=== PATIENT | male | born 1945 | race Caucasian/White ===

== ENCOUNTER → 2018-12-23 | Outpatient (CLI) | payer MEDICARE ==
--- NOTE | 2018-12-24 07:07 | REP ---
RIGHT KNEE SERIES: Five views right knee performed. No fracture or dislocation is seen. There is mild chondrocalcinosis. Scattered soft tissue calcifications are seen posteriorly. There is severe narrowing of the lateral patellofemoral joint with erosive change at the articular surfaces and moderate subchondral sclerosis. Large calcific body is seen along the margin of the lateral patellar facet. There is moderate spurring of the superior and inferior poles of the patella. There appears to be a moderate joint effusion. IMPRESSION: Severe degenerative changes patellofemoral joint. I see no evidence of acute fracture or dislocation. Moderate joint effusion. Electronically Signed by Cory Mari MD 12/24/2018 09:19 A
== END ==
LOC: M WUC 13:42
PROVIDERS: ATTEND Physician Assistant
DX: S80.01XA Contusion of right knee, initial encounter (principal); M25.461 Effusion, right knee; Y92.9 Unspecified place or not applicable; Y99.9 Unspecified external cause status; Y93.9 Activity, unspecified; X58.XXXA Exposure to other specified factors, initial encounter

== ENCOUNTER → 2019-04-11 | Outpatient (CLI) | payer MEDICARE ==
[2019-04-11 12:02] LABS: BASO # 0.1 10^3/uL (0.0-0.2); BASO % 1.6 % (0.0-1.0); EOS # 0.3 10^3/uL (0.0-0.50); EOS % 8.1 % (0.0-3.0); HEMATOCRIT 40.9 % (42.0-52.0); HEMOGLOBIN 13.9 g/dl (13.5-17.5); LYMPH # 0.9 10^3/uL (1.5-4.5); LYMPH % 27.8 % (24.0-44.0); MEAN CORPUSCULAR HEMOGLOBIN 32.4 pg (27.0-33.0); MEAN CORPUSCULAR VOLUME 95.3 fl (80.0-96.0); MONO # 0.3 10^3/uL (0.0-0.8); MONO % 9.4 % (0.0-5.0); NEUTROPHILS # 1.7 10^3/uL (1.8-7.7); NEUTROPHILS % 52.8 % (36.0-66.0); RED BLOOD COUNT 4.29 10^6/uL (4.30-6.10); WHITE BLOOD COUNT 3.2 10^3/uL (4.0-10.0)
[2019-04-11 12:08] LABS: ALBUMIN 3.3 GM/DL (3.2-5.2); ALT/SGPT 78 U/L (12-78); BILIRUBIN,TOTAL 0.6 MG/DL (0.2-1.0); BLOOD UREA NITROGEN 13 MG/DL (7-18); CALCIUM LEVEL 8.6 MG/DL (8.8-10.2); CARBON DIOXIDE LEVEL 29 MEQ/L (21-32); CHLORIDE LEVEL 111 MEQ/L (98-107); GLOMERULAR FILTRATION RATE > 60.0 (>42); GLUCOSE, FASTING 119 MG/DL (70-100); POTASSIUM SERUM 4.2 MEQ/L (3.5-5.1); SODIUM LEVEL 145 MEQ/L (136-145); TOTAL PROTEIN 7.4 GM/DL (6.4-8.2)
[2019-04-11 12:42] LABS: PLATELET COUNT, AUTOMATED 71 10^3/uL (150-450)
[2019-04-13 00:06] LABS: Lyme Disease IgG/IgM Antibodie <0.91 ISR (0.00-0.90); Lyme Disease IgM Ab Quantitati <0.80 index (0.00-0.79)
== END ==
LOC: M WUC 09:45
PROVIDERS: ATTEND Physician Assistant
DX: L30.9 Dermatitis, unspecified (principal)

== ENCOUNTER → 2019-11-18 | Outpatient (REF) | payer MEDICARE ==
[2019-11-18 15:58] LABS: PLATELET COUNT, AUTOMATED 83 10^3/uL (150-450)
[2019-11-18 16:03] LABS: COLLAGEN EPINEPHRINE 136 SECONDS (74-162)
[2019-11-18 16:06] LABS: INR 1.21; PROTHROMBIN TIME 15.1 SECONDS (11.8-14.0)
[2019-11-18 16:07] LABS: PARTIAL THROMBOPLASTIN TIME 36.4 SECONDS (25.0-38.4)
== END ==
LOC: M LABDRAW1 15:32
PROVIDERS: ATTEND Physician Assistant
DX: Z01.812 Encounter for preprocedural laboratory examination (principal); M47.817 Spondylosis without myelopathy or radiculopathy, lumbosacral region; Z79.01 Long term (current) use of anticoagulants

== ENCOUNTER → 2020-07-01 | Outpatient (CLI) | payer MEDICARE | LOC: M LABSMTC 09:36 | PROVIDERS: ATTEND Physical Medicine & Rehabilitation | DX: Z01.812 Encounter for preprocedural laboratory examination (principal); Z20.828 Contact with and (suspected) exposure to other viral communicable diseases ==

== ENCOUNTER → 2020-07-21 | Outpatient (CLI) | payer MEDICARE ==
[2020-07-21 16:06] LABS: PLATELET COUNT, AUTOMATED 69 10^3/uL (150-450)
[2020-07-21 16:17] LABS: INR 1.22; PROTHROMBIN TIME 15.7 SECONDS (12.5-14.3)
[2020-07-21 16:18] LABS: PARTIAL THROMBOPLASTIN TIME 35.6 SECONDS (24.2-38.5)
[2020-07-21 16:19] LABS: COLLAGEN EPINEPHRINE 123 SECONDS (74-162)
== END ==
LOC: M WUC 13:31
PROVIDERS: ATTEND Physician Assistant
DX: M47.817 Spondylosis without myelopathy or radiculopathy, lumbosacral region (principal)

== ENCOUNTER → 2020-07-22 | Outpatient (CLI) | payer MEDICARE | LOC: M LABSMTC 13:22 | PROVIDERS: ATTEND Physical Medicine & Rehabilitation | DX: Z01.818 Encounter for other preprocedural examination (principal); Z20.828 Contact with and (suspected) exposure to other viral communicable diseases ==

== ENCOUNTER → 2020-08-14 | Outpatient (REF) | payer MEDICARE ==
[2020-08-14 13:34] LABS: INR 1.22; PROTHROMBIN TIME 15.7 SECONDS (12.5-14.3)
== END ==
LOC: M LAB REF 12:29
PROVIDERS: ATTEND Physician Assistant Medical
DX: D69.2 Other nonthrombocytopenic purpura (principal)

== ENCOUNTER → 2020-10-05 | Outpatient (CLI) | payer MEDICARE ==
[~2020-10-05] MED LIST: GABA-845 PO; HYDR12.55 PO; MOBI4TAB PO; PRED20TA PO
== END ==
LOC: M LABSMTC 09:48
PROVIDERS: ATTEND Anesthesiology
DX: Z01.812 Encounter for preprocedural laboratory examination (principal); Z20.828 Contact with and (suspected) exposure to other viral communicable diseases

== ENCOUNTER 2020-10-08 07:54 | Day surgery (SDC) | payer MEDICARE ==
[~2020-10-08] VITALS: Ht 182.9 cm; Wt 108.9 kg
[~2020-10-08 07:54] MED LIST changes: +NS 1,000 ML IV ONE
[2020-10-08] MEDS ORDERED: LIDOCAINE 2% 100MG/5ML SDV (FOR ANES.) As Ordered ONE (08:19)
[2020-10-08] MEDS ORDERED: fentaNYL 100 MCG/2 ML INJECTION (J3010) As Ordered ONE (08:20)
[2020-10-08] MEDS ORDERED: propofoL 200 MG/20 ML VIAL As Ordered ONE ×2 (08:28→08:29)
--- NOTE | 2020-10-08 09:39 | ROOR ---
Patient Name: Raul Lane Procedure Date: 10/08/2020 9:11 AM Date of : 1945 Age: 75 Room: [facility] Gender: Male Note Status: Finalized Procedure: Colonoscopy Indications: Screening for colorectal malignant neoplasm Providers: Riley Yoon Jr, MD Referring MD: PADILLA AVILA JR, MD Requesting Provider: Medicines: Propofol per Anesthesia Complications: No immediate complications. Procedure: Pre-Anesthesia Assessment: - Prior to the procedure, a History and Physical was performed, and patient medications and allergies were reviewed. The patient is competent. The risks and benefits of the procedure and the sedation options and risks were discussed with the patient. All questions were answered and informed consent was obtained. Patient identification and proposed procedure were verified by the physician and the nurse in the pre-procedure area and in the procedure room. Mental Status Examination: alert and oriented. Airway Examination: normal oropharyngeal airway and neck mobility. Respiratory Examination: clear to auscultation. CV Examination: normal. ASA Grade Assessment: II - A patient with mild systemic disease. After reviewing the risks and benefits, the patient was deemed in satisfactory condition to undergo the procedure. The anesthesia plan was to use moderate sedation / analgesia (conscious sedation). Immediately prior to administration of medications, the patient was re-assessed for adequacy to receive sedatives. The heart rate, respiratory rate, oxygen saturations, blood pressure, adequacy of pulmonary ventilation, and response to care were monitored throughout the procedure. The physical status of the patient was re-assessed after the procedure. The Colonoscope was introduced through the anus and advanced to the cecum, identified by appendiceal orifice and ileocecal valve. The colonoscopy was performed without difficulty. The patient tolerated the procedure well. The quality of the bowel preparation was adequate. Findings: A scattered area of moderately friable mucosa with contact bleeding was found in the cecum and at the ileocecal valve. This was biopsied with a cold forceps for histology. Five polyps were found in the descending colon, ascending colon and cecum. The polyps were small in size. These polyps were removed with a cold snare. Resection was complete, but the polyp tissue was only partially retrieved. Multiple small and large-mouthed diverticula were found in the sigmoid colon and descending colon. Non-bleeding external and internal hemorrhoids were found during endoscopy. The hemorrhoids were Grade II (internal hemorrhoids that prolapse but reduce spontaneously) and Grade III (internal hemorrhoids that prolapse but require manual reduction). Impression: - Friability with contact bleeding in the cecum and at the ileocecal valve. Biopsied. - Five small polyps in the descending colon, in the ascending colon and in the cecum, removed with a cold snare. Complete resection. Partial retrieval. - Diverticulosis in the sigmoid colon and in the descending colon. - Non-bleeding external and internal hemorrhoids. Recommendation: - Discharge patient to home (ambulatory). - Repeat colonoscopy date to be determined after pending pathology results are reviewed for surveillance based on pathology results. - Return to my office in 2 weeks. Procedure Code(s): --- Professional --- 02496, Colonoscopy, flexible; with removal of tumor(s), polyp(s), or other lesion(s) by snare technique 15128, 59, Colonoscopy, flexible; with biopsy, single or multiple Diagnosis Code(s): --- Professional --- Z12.11, Encounter for screening for malignant neoplasm of colon K92.2, Gastrointestinal hemorrhage, unspecified K63.5, Polyp of colon K64.2, Third degree hemorrhoids K57.30, Diverticulosis of large intestine without perforation or abscess without bleeding CPT copyright 2019 [employer]. All rights reserved. The codes documented in this report are preliminary and upon chair review may be revised to meet current compliance requirements. Riley Yoon MD Riley Yoon Jr, MD 10/08/2020 9:39:22 AM Electronically signed by Riley Yoon Jr, MD Number of Addenda: 0 Note Initiated On: 10/08/2020 9:11 AM Estimated Blood Loss: Estimated blood loss: none.
[2020-10-08 09:55] VITALS: BP 161/78
== END 2020-10-08 10:03 | disposition home or self-care (01) ==
LOC: M OPP 07:54
PROVIDERS: ATTEND Surgery
DX: Z12.11 Encounter for screening for malignant neoplasm of colon (principal); D12.6 Benign neoplasm of colon, unspecified; K57.30 Diverticulosis of large intestine without perforation or abscess without bleeding; K64.2 Third degree hemorrhoids; K92.2 Gastrointestinal hemorrhage, unspecified; I10 Essential (primary) hypertension; M19.90 Unspecified osteoarthritis, unspecified site; Z79.899 Other long term (current) drug therapy
CPT/HCPCS: 45380; 45385; 88305; J3010

== ENCOUNTER → 2020-10-21 | Outpatient (CLI) | payer MEDICARE ==
[~2020-10-21] MED LIST changes: +LIDOCAINE 1% MDV 20ML VIAL As Ordered ONE; -NS 1,000 ML IV ONE
[2020-10-21 08:49] LABS: HEMATOCRIT 37.6 % (42.0-52.0); HEMOGLOBIN 12.4 g/dl (13.5-17.5); MEAN CORPUSCULAR HEMOGLOBIN 31.5 pg (27.0-33.0); MEAN CORPUSCULAR VOLUME 95.4 fl (80.0-96.0); RED BLOOD COUNT 3.94 10^6/uL (4.30-6.10); WHITE BLOOD COUNT 3.2 10^3/uL (4.0-10.0)
[2020-10-21 08:53] LABS: PLATELET COUNT, AUTOMATED 66 10^3/uL (150-450)
[2020-10-21 10:39] VITALS: BP 150/77
--- NOTE | 2020-10-21 18:05 | REP ---
INDICATION: THROMBOCYTOPENIA. COMPARISON: None. TECHNIQUE: The procedure was performed under the direct supervision of Dr. Mari. The risks and benefits of the procedure were explained to the patient and informed consent was obtained. The right iliac bone was localized using CT guidance. The skin was prepped and draped in a sterile fashion. 1% lidocaine was used as a local anesthetic. Using CT guidance an 11 gauge bone biopsy needle system was inserted and 4 cc of marrow fluid was withdrawn. One core was then obtained. The patient tolerated the procedure well and there were no immediate complications. After the appropriate amount to monitor convalescence the patient was discharged from the department. FINDINGS: None IMPRESSION: CT-guided right iliac bone marrow biopsy. <Electronically signed by Anirudh Jean > 10/21/20 1645 <Electronically signed by Cory Mari > 10/21/20 0439
== END ==
LOC: M IRPRO 07:46
PROVIDERS: ATTEND Specialist
DX: D69.6 Thrombocytopenia, unspecified (principal)

== ENCOUNTER → 2020-12-20 | Outpatient (CLI) | payer MEDICARE ==
[~2020-12-20] MED LIST changes: -LIDOCAINE 1% MDV 20ML VIAL As Ordered ONE
--- NOTE | 2020-12-20 17:51 | REP ---
INDICATION: PAIN IN RIGHT HIP. COMPARISON: None. TECHNIQUE: Two views. FINDINGS: Mineralization joint are a space are unremarkable. There is no fracture or dislocation. There are no calcifications or foreign bodies. IMPRESSION: Negative plain film study of the right hip. <Electronically signed by Cory Shirley > 12/20/20 [id number]
--- NOTE | 2020-12-20 17:55 | REP ---
INDICATION: PAIN IN RIGHT HIP. COMPARISON: Lumbar spine MRI dated 06/07/2019. TECHNIQUE: There are three views. FINDINGS: Vertebral body heights are normal. There is degenerative disc disease at every lumbar level. There is mild grade 1 retrolisthesis of L2 on 3 and of of L3 on 4. This is likely degenerative. The pedicles and sacroiliac articulations are unremarkable. The facets are suboptimally demonstrated. IMPRESSION: Multilevel degenerative disc disease. Two level mild grade 1 retrolisthesis as described. Otherwise, negative three view lumbar spine. <Electronically signed by Cory Shirley > 12/20/20 [id number]
== END ==
LOC: M RAD 16:12
PROVIDERS: ATTEND Physician Assistant
DX: M25.551 Pain in right hip (principal); M51.36 Other intervertebral disc degeneration, lumbar region

== ENCOUNTER → 2020-12-22 | Outpatient (CLI) | payer MEDICARE ==
[2020-12-22 16:30] LABS: BASO # 0.1 10^3/uL (0.0-0.2); BASO % 1.7 % (0.0-1.0); EOS # 0.2 10^3/uL (0.0-0.5); EOS % 6.1 % (0.0-3.0); HEMATOCRIT 43.1 % (42.0-52.0); MEAN CORPUSCULAR HEMOGLOBIN 32.4 pg (27.0-33.0); MEAN CORPUSCULAR HGB CONC 32.5 g/dl (32.0-36.5); MEAN CORPUSCULAR VOLUME 99.8 fl (80.0-96.0); MONO # 0.5 10^3/uL (0.0-0.8); MONO % 12.4 % (2.0-8.0); NEUTROPHILS # 1.9 10^3/uL (1.5-8.5); NEUTROPHILS % 52.5 % (36.0-66.0); RED BLOOD COUNT 4.32 10^6/uL (4.30-6.10); WHITE BLOOD COUNT 3.6 10^3/uL (4.0-10.0)
[2020-12-22 16:34] LABS: PLATELET COUNT, AUTOMATED 54 10^3/uL (150-450)
== END ==
LOC: M WUC 12:12
PROVIDERS: ATTEND Physician Assistant
DX: M47.817 Spondylosis without myelopathy or radiculopathy, lumbosacral region (principal)

== ENCOUNTER → 2021-01-26 | Outpatient (CLI) | payer MEDICARE ==
--- NOTE | 2021-01-26 19:35 | REPVR ---
PROCEDURE INFORMATION: Exam: MR Lumbar Spine Without Contrast Exam date and time: 01/26/2021 5:53 PM Age: 75 years old Clinical indication: Low back pain; Additional info: Other intervertebral disc degeneration, lumbosacral region TECHNIQUE: Imaging protocol: Multiplanar magnetic resonance images of the lumbar spine without intravenous contrast. COMPARISON: [place] Spine, Lumbosacral, partial 12/20/2020 4:26 PM FINDINGS: Vertebrae and Spinal cord: The lower thoracic cord is unremarkable and the conus terminates at the level of the superior endplate of L1. Degenerative disc disease and facet arthrosis is present throughout the lumbar spine. There are compression fracture deformities of the superior endplates of L1, L2 and L3. No retropulsed bony fragment. Bone marrow edema signal within these vertebral bodies is present and consistent with acute/subacute fractures. Underlying bone pathology is not excluded. High T2 signal at the anterior edge of the L4 superior endplate is present and may be secondary to anterior endplate compression versus disovertebral endplate signal change. L1-L2: Mild posterior broad-based disc bulge. Bilateral facet hypertrophy and ligamentum flavum thickening. Mild to moderate spinal stenosis. Bilateral lateral recess stenosis. L2-L3: Posterior broad-based disc protrusion, bilateral facet hypertrophy and ligamentum flavum thickening. Moderate spinal stenosis. L3-L4: Mild posterior broad-based disc bulge. Bilateral facet hypertrophy and ligamentum flavum thickening. Severe spinal stenosis. L4-L5: Grade 1 anterolisthesis of L4. Bilateral facet hypertrophy and ligamentum flavum thickening. Severe spinal stenosis. High T2 and high STIR signal changes within the left side of the L4-L5 intervertebral disc space, likely discogenic. No endplate edema is present. Discitis is not completely excluded. No epidural abscess. L5-S1: Disc space height loss. No disc protrusion. Bilateral facet hypertrophy and ligamentum flavum thickening. No spinal stenosis. Soft tissues: Unremarkable. IMPRESSION: 1. Degenerative disc disease and facet arthrosis throughout the lumbar spine. There is severe spinal stenosis at L3-L4 and L4-L5. 2. High signal changes on T2 and STIR sequences within the L4-L5 disc space, likely discogenic. Discitis is not completely excluded however. Close clinical correlation and possible follow-up MRI as clinically warranted is recommended. 3. Acute/subacute compression fracture deformities of the superior endplates of L1, L2 and L3. High T2 signal within the vertebral bodies is likely edema associated with acute/subacute fractures. Underlying pathological fractures are not completely excluded. Further clinical evaluation and close imaging follow-up is recommended as clinically warranted. Electronically signed by: Misbah Luu On 01/26/2021 19:34:26 PM
== END ==
LOC: M RAD 17:50
PROVIDERS: ATTEND Physician Assistant
DX: M51.37 Other intervertebral disc degeneration, lumbosacral region (principal)

== ENCOUNTER → 2021-02-11 | Outpatient (CLI) | payer MEDICARE ==
[~2021-02-11] MED LIST changes: +GABA-283 PO; -GABA-845 PO
== END ==
LOC: M LABSMTC 10:48
PROVIDERS: ATTEND Anesthesiology
DX: Z01.818 Encounter for other preprocedural examination (principal); Z11.52 Encounter for screening for COVID-19

== ENCOUNTER 2021-02-16 11:37 | Day surgery (SDC) | payer MEDICARE ==
[~2021-02-16] VITALS: Ht 185.4 cm; Wt 100.6 kg
[~2021-02-16 11:37] MED LIST changes: +NS 1,000 ML IV ONE
[2021-02-16] MEDS ORDERED: LIDOCAINE 2% 100MG/5ML SDV (FOR ANES.) As Ordered ONE (12:46)
[2021-02-16] MEDS ORDERED: propofoL 200 MG/20 ML VIAL As Ordered ONE ×3 (12:46→13:50)
[2021-02-16] MEDS ORDERED: fentaNYL 100 MCG/2 ML INJECTION (J3010) As Ordered ONE (12:47)
[2021-02-16 12:56] LABS: HEMATOCRIT 38.3 % (42.0-52.0); HEMOGLOBIN 12.8 g/dl (13.5-17.5); MEAN CORPUSCULAR HGB CONC 33.4 g/dl (32.0-36.5); MEAN CORPUSCULAR VOLUME 95.8 fl (80.0-96.0); PLATELET COUNT, AUTOMATED 65 10^3/uL (150-450); WHITE BLOOD COUNT 2.9 10^3/uL (4.0-10.0)
[2021-02-16 13:09] LABS: INR 1.3; PROTHROMBIN TIME 16.5 SECONDS (12.5-14.3)
[2021-02-16 13:10] LABS: PARTIAL THROMBOPLASTIN TIME 41.4 SECONDS (24.2-38.5)
[2021-02-16 13:17] LABS: BLOOD UREA NITROGEN 7 MG/DL (7-18); CREATININE FOR GFR 0.55 MG/DL (0.70-1.30); GLOMERULAR FILTRATION RATE > 60.0 (>42)
--- NOTE | 2021-02-16 14:11 | ROOR ---
Patient Name: Raul Lane Procedure Date: 02/16/2021 1:03 PM Date of : 1945 Age: 75 Room: [facility] Gender: Male Note Status: Finalized Procedure: Upper GI endoscopy Indications: Portal hypertension with suspected esophageal varices Providers: Rich Subramanian MD Referring MD: Norm leija [facility] Requesting Provider: Medicines: Propofol per Anesthesia Complications: No immediate complications. Procedure: Pre-Anesthesia Assessment: - Prior to the procedure, a History and Physical was performed, and patient medications and allergies were reviewed. The patient is competent. The risks and benefits of the procedure and the sedation options and risks were discussed with the patient. All questions were answered and informed consent was obtained. Patient identification and proposed procedure were verified by the physician, the nurse and the anesthesiologist in the procedure room. Mental Status Examination: alert and oriented. Airway Examination: normal oropharyngeal airway and neck mobility. Respiratory Examination: clear to auscultation. CV Examination: normal. Prophylactic Antibiotics: The patient does not require prophylactic antibiotics. Prior Anticoagulants: The patient has taken no previous anticoagulant or antiplatelet agents. ASA Grade Assessment: II - A patient with mild systemic disease. After reviewing the risks and benefits, the patient was deemed in satisfactory condition to undergo the procedure. The anesthesia plan was to use monitored anesthesia care (MAC). Immediately prior to administration of medications, the patient was re-assessed for adequacy to receive sedatives. The heart rate, respiratory rate, oxygen saturations, blood pressure, adequacy of pulmonary ventilation, and response to care were monitored throughout the procedure. The physical status of the patient was re-assessed after the procedure. The Endoscope was introduced through the mouth, and advanced to the second part of duodenum. The upper GI endoscopy was accomplished without difficulty. The patient tolerated the procedure well. Findings: Grade I, small (< 5 mm) varices were found in the lower third of the esophagus. Scattered mild inflammation characterized by erythema and granularity was found in the gastric antrum. Biopsies were taken with a cold forceps for Helicobacter pylori testing. Verification of patient identification for the specimen was done by the physician and nurse using the patient's name, date and medical record number. Estimated blood loss was minimal. The duodenal bulb and second portion of the duodenum were normal. Impression: - Grade I and small (< 5 mm) esophageal varices. - Gastritis. Biopsied. - Normal duodenal bulb and second portion of the duodenum. Recommendation: - Patient has a contact number available for emergencies. The signs and symptoms of potential delayed complications were discussed with the patient. Return to normal activities tomorrow. Written discharge instructions were provided to the patient. - Clear liquid diet for 1 day, then advance as tolerated to high fiber diet and low sodium diet. - Continue present medications. - Follow an antireflux regimen. - Return to GI clinic in [facility] (address [address], [address], [place], [facility]) in 4 -- 6 weeks. Please call GI clinic @ [phone] for apppointment date and time. - Return to primary care physician. Procedure Code(s): --- Professional --- 42206, Esophagogastroduodenoscopy, flexible, transoral; with biopsy, single or multiple Diagnosis Code(s): --- Professional --- K76.6, Portal hypertension I85.10, Secondary esophageal varices without bleeding K29.70, Gastritis, unspecified, without bleeding CPT copyright 2019 [employer]. All rights reserved. The codes documented in this report are preliminary and upon invoice coder review may be revised to meet current compliance requirements. Rich Subramanian MD Rich Subramanian MD 02/16/2021 2:10:29 PM Electronically signed by Rich Subramanian MD Number of Addenda: 0 Note Initiated On: 02/16/2021 1:03 PM Estimated Blood Loss: Estimated blood loss was minimal.
[2021-02-16 14:25] VITALS: BP 133/65
--- NOTE | 2021-02-16 14:26 | ROOR ---
Patient Name: Raul Lane Procedure Date: 02/16/2021 1:04 PM Date of : 1945 Age: 75 Room: [facility] Gender: Male Note Status: Finalized Procedure: Colonoscopy Indications: Therapeutic procedure for colon polyps Providers: Rich Subramanian MD Referring MD: [facility] Request[facility] Provider: Medicines: Monitored Anesthesia Care Complications: No immediate complications. Procedure: Pre-Anesthesia Assessment: - Prior to the procedure, a History and Physical was performed, and patient medications and allergies were reviewed. The patient is competent. The risks and benefits of the procedure and the sedation options and risks were discussed with the patient. All questions were answered and informed consent was obtained. Patient identification and proposed procedure were verified by the physician, the nurse and the anesthesiologist in the procedure room. Mental Status Examination: alert and oriented. Airway Examination: normal oropharyngeal airway and neck mobility. Respiratory Examination: clear to auscultation. CV Examination: normal. Prophylactic Antibiotics: The patient does not require prophylactic antibiotics. Prior Anticoagulants: The patient has taken no previous anticoagulant or antiplatelet agents. ASA Grade Assessment: II - A patient with mild systemic disease. After reviewing the risks and benefits, the patient was deemed in satisfactory condition to undergo the procedure. The anesthesia plan was to use monitored anesthesia care (MAC). Immediately prior to administration of medications, the patient was re-assessed for adequacy to receive sedatives. The heart rate, respiratory rate, oxygen saturations, blood pressure, adequacy of pulmonary ventilation, and response to care were monitored throughout the procedure. The physical status of the patient was re-assessed after the procedure. The Colonoscope was introduced through the anus and advanced to the terminal ileum, with identification of the appendiceal orifice and IC valve. The colonoscopy was performed without difficulty. The patient tolerated the procedure well. The quality of the bowel preparation was good. The terminal ileum, ileocecal valve, appendiceal orifice, and rectum were photographed. Scope insertion time was 2 minutes. Scope withdrawal time was 8 minutes. The total duration of the procedure was 15 minutes. Findings: The perianal and digital rectal examinations were normal. The terminal ileum appeared normal. A 20 mm polyp was found in the ileocecal valve. The polyp was sessile. The polyp was removed with a hot snare. Resection and retrieval were complete. To close a defect after polypectomy, two hemostatic clips were successfully placed. There was no bleeding at the end of the procedure. Verification of patient identification for the specimen was done by the physician and nurse using the patient's name, date and medical record number. Estimated blood loss was minimal. Six sessile polyps were found in the rectum, transverse colon and ascending colon. The polyps were 5 to 15 mm in size. These polyps were removed with a hot snare. Resection and retrieval were complete. To close a defect after polypectomy, two hemostatic clips were successfully placed. There was no bleeding at the end of the procedure. Multiple small and large-mouthed diverticula were found in the sigmoid colon. There was no evidence of diverticular bleeding. Non-bleeding external and internal hemorrhoids were found during retroflexion. The hemorrhoids were medium-sized. Impression: - The examined portion of the ileum was normal. - One 20 mm polyp at the ileocecal valve, removed with a hot snare. Resected and retrieved. Clips were placed. - Six 5 to 15 mm polyps in the rectum, in the transverse colon and in the ascending colon, removed with a hot snare. Resected and retrieved. Clips were placed. - Moderate diverticulosis in the sigmoid colon. There was no evidence of diverticular bleeding. - Non-bleeding external and internal hemorrhoids. Recommendation: - Patient has a contact number available for emergencies. The signs and symptoms of potential delayed complications were discussed with the patient. Return to normal activities tomorrow. Written discharge instructions were provided to the patient. - Clear liquid diet for 1 day, then advance as tolerated to high fiber diet. - Continue present medications. - Await pathology results. - Repeat colonoscopy in 1 year for surveillance based on pathology results. - Telephone GI clinic for pathology results in 2 weeks. Procedure Code(s): --- Professional --- 52437, Colonoscopy, flexible; with removal of tumor(s), polyp(s), or other lesion(s) by snare technique Diagnosis Code(s): --- Professional --- K64.8, Other hemorrhoids K63.5, Polyp of colon K62.1, Rectal polyp K57.30, Diverticulosis of large intestine without perforation or abscess without bleeding CPT copyright 2019 [employer]. All rights reserved. The codes documented in this report are preliminary and upon pharmacist's aide review may be revised to meet current compliance requirements. Rich Subramanian MD Rich Subramanian MD 02/16/2021 2:26:13 PM Electronically signed by Rich Subramanian MD Number of Addenda: 0 Note Initiated On: 02/16/2021 1:04 PM Estimated Blood Loss: Estimated blood loss was minimal.
== END 2021-02-16 14:25 | disposition home or self-care (01) ==
LOC: M OPP 11:37
PROVIDERS: ATTEND Internal Medicine Gastroenterology
DX: D12.6 Benign neoplasm of colon, unspecified (principal); K62.1 Rectal polyp; K57.30 Diverticulosis of large intestine without perforation or abscess without bleeding; K64.8 Other hemorrhoids; K76.6 Portal hypertension; K29.70 Gastritis, unspecified, without bleeding; I85.10 Secondary esophageal varices without bleeding
CPT/HCPCS: 36415; 43239; 45385; 82565; 84520; 85027; 85049; 85055; 85610; 85730; 86850; 86900; 86901; 88305; J3010

== ENCOUNTER → 2021-03-15 | Outpatient (CLI) | payer MEDICARE ==
[~2021-03-15] MED LIST changes: -NS 1,000 ML IV ONE; +PROHANCE 279.3MG/ML 15ML VIAL As Ordered ONE; +PROHANCE 279.3MG/ML 5ML VIAL As Ordered ONE
--- NOTE | 2021-03-15 20:44 | REPVR ---
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 Contrast material: PROHANCE; Contrast volume: 20 ml; Contrast route: INTRAVENOUS (IV); COMPARISON: MRI-Spine, L.S. without con 01/26/2021 6:29 PM FINDINGS: Vertebrae: Compression fractures involving the superior endplates of L1, L2 and L3 are again noted and are unchanged. There may also be mild compression anterior margin superior endplate of L4 and L5 although the abnormal signal in this location may be due to adjacent disc degeneration. Edema is again seen throughout the L3 vertebral body and to a lesser degree in primarily the anterior margins of the superior endplates of L1 through L4. There is also marked increased signal in the L4-L5 disc on the STIR sequence similar to the prior study. Diffuse degenerative facet arthropathy. Spinal cord:The conus medullaris is normal appearance of the T12-L1 level. T12-L1: No significant spinal canal stenosis or neural foraminal narrowing. L1-L2: Moderate to severe spinal canal stenosis and lateral recess narrowing which may affect the exiting L2 nerve roots. Patent neural foramen. L2-L3: Severe spinal canal stenosis. Some residual fat is seen in lateral recesses but there is in compression of the exiting L3 nerve roots and the thecal sac. Patent neural foramen. L3-L4: Severe spinal canal stenosis due to diffusely bulging annulus, ligamentum flavum hypertrophy and degenerative facet arthropathy with compression of the thecal sac and both exiting L4 nerve roots. The neural foramina are stenotic which may affect the L3 nerve roots. L4-L5: Grade 1-2 anterior spondylolisthesis due to subluxation of the degenerated facet joints. Moderate to severe spinal canal stenosis with narrowing of the lateral recesses with compression of both exiting L5 nerve roots. There is fluid within both facet joints likely due to the degenerative subluxation however septic arthritis is within the differential but the appearance is unchanged. Patent neural foramen but bulging annular material posteriorly displaces the right L4 nerve root in the far lateral position in the in the. L5-S1: No significant spinal canal stenosis or neural foraminal narrowing. Soft tissues: No evidence of an epidural abscess. IMPRESSION: There is diffuse enhancement in the L3 vertebral body as well as within the fluid along the inferior margin of the L2-L3 disc and superior margin of the L3-L4 disc which may be due to discitis/osteomyelitis. The cortex of the superior endplate of L3 anterior 2/3 may be eroded. Series 701, image 1 frame 5. There is also enhancement in the superior endplates of L1, L2 and L4. There is enhancement between and around the L3 and L4 spinous process series 701 image 1 frames 6-9 which may be due to inflammatory arthritis but could also be due to septic arthritis. Electronically signed by: Cassidy Ventura On 03/15/2021 20:43:49 PM
== END ==
LOC: M RAD 16:14
PROVIDERS: ATTEND Physical Medicine & Rehabilitation
DX: M47.817 Spondylosis without myelopathy or radiculopathy, lumbosacral region (principal)
CPT/HCPCS: 72158; A9576

== ENCOUNTER → 2021-03-17 | Outpatient (CLI) | payer MEDICARE ==
[~2021-03-17] MED LIST changes: -PROHANCE 279.3MG/ML 15ML VIAL As Ordered ONE; -PROHANCE 279.3MG/ML 5ML VIAL As Ordered ONE
--- NOTE | 2021-03-17 09:13 | REP ---
INDICATION: ASCITES, PORTAL HTN; PORTAL HTN. COMPARISON: 09/17/2020. TECHNIQUE: Real-time sonographic evaluation of ABDOMEN PERFORMED, WITH DUPLEX DOPPLER EVALUATION OF PORTAL VASCULATURE. FINDINGS: The gallbladder demonstrates no evidence of intraluminal sludge or calculi, wall thickening or pericholecystic fluid. There is no intrahepatic or extrahepatic biliary dilatation, common bile duct measures 4 mm in maximum diameter. The liver demonstrates diffuse heterogeneous echotexture with no gross mass. Pancreas is not well seen due to overlying bowel gas. Spleen is enlarged, measuring 15.6 x 12.9 x 7.4 cm. A splenule is noted with a maximum diameter of 2.6 cm. There is no evidence of hydronephrosis, cyst, mass, or calculus in either kidney. The right kidney measures 11.6 x 5.6 x 5.5 cm. Left renal dimensions are 11.2 x 6.1 x 6.6 cm. No free fluid is seen. The main portal vein measures 14 mm in diameter. The splenic vein and portal veins demonstrate normal direction of flow, with normal flow velocities and waveforms. There is no portal vein thrombosis. Hepatic veins are patent with no thrombus. Patent main hepatic artery demonstrates peak systolic velocity of 194 centimeters/second. The central splenic vein and the superior mesenteric vein could not be visualized. IMPRESSION: Diffuse heterogeneous echotexture of the liver with no gross mass. Splenomegaly. No ascites. Main portal vein is upper limits of normal in size. Essentially normal Doppler flow in the portal vasculature and hepatic veins, with no thrombosis. Portal vasculature demonstrates normal direction of flow with no thrombosis. No evidence of hepatic vein thrombosis. <Electronically signed by Cory Mari > 03/17/21 0900
== END ==
LOC: M RAD 07:07
PROVIDERS: ATTEND Internal Medicine Gastroenterology
DX: K63.5 Polyp of colon (principal)

== ENCOUNTER → 2021-03-23 | Outpatient (CLI) | payer MEDICARE ==
[2021-03-23 09:13] LABS: BASO # 0.1 10^3/uL (0.0-0.2); BASO % 1.2 % (0.0-1.0); EOS # 0.2 10^3/uL (0.0-0.5); HEMOGLOBIN 12.7 g/dl (13.5-17.5); LYMPH # 1.2 10^3/uL (1.5-5.0); LYMPH % 30.6 % (24.0-44.0); MEAN CORPUSCULAR HEMOGLOBIN 32.7 pg (27.0-33.0); MEAN CORPUSCULAR HGB CONC 33.4 g/dl (32.0-36.5); MEAN CORPUSCULAR VOLUME 97.9 fl (80.0-96.0); MONO # 0.4 10^3/uL (0.0-0.8); NEUTROPHILS # 2.1 10^3/uL (1.5-8.5); RED BLOOD COUNT 3.88 10^6/uL (4.30-6.10)
[2021-03-23 09:16] LABS: PLATELET COUNT, AUTOMATED 79 10^3/uL (150-450)
[2021-03-23 09:33] LABS: BLOOD UREA NITROGEN 10 MG/DL (7-18); C REACTIVE PROTEIN QUANTITATIV < 0.30 MG/DL (0.00-0.30); CREATININE FOR GFR 0.66 MG/DL (0.70-1.30); GLOMERULAR FILTRATION RATE > 60.0 (>42)
[2021-03-23 09:46] LABS: ERYTHROCYTE SEDIMENTATION RATE 37 mm/hr (0-20)
== END ==
LOC: M LAB 08:16
PROVIDERS: ATTEND Physical Medicine & Rehabilitation
DX: M47.817 Spondylosis without myelopathy or radiculopathy, lumbosacral region (principal)

== ENCOUNTER → 2021-06-10 | Outpatient (CLI) | payer MEDICARE ==
--- NOTE | 2021-06-11 01:13 | REPVR ---
PROCEDURE INFORMATION: Exam: MR Pelvis Without Contrast, Sacral plexus Exam date and time: 06/10/2021 9:47 AM Age: 75 years old Clinical indication: Pain; Other: Lbp w numbness in legs; Additional info: Spondylosis TECHNIQUE: Imaging protocol: Magnetic resonance images of the pelvis without intravenous contrast. Exam focused on the sacral plexus. COMPARISON: 1. CR Spine, Lumbosacral, partial 12/20/2020 4:26 PM 2. MRI-LS SPINE W/O FOLL WITH CON 03/15/2021 4:52:57 PM FINDINGS: Intraperitoneal space: Small amount of free fluid within the pelvis. Mild edematous changes seen within the pelvis. Bladder: Within the bladder posteriorly, there is a 1.0 x 0.3 cm focus of hypointensity, suggestive of a bladder stone. Reproductive: Heterogeneous signal intensity of the prostate, which is incompletely visualized. Within the left side of the prostate, there is a 1.4 cm ovoid area of increased T1 signal intensity, and hemorrhage cannot be excluded. Veins: Mild swelling is identified anterior to the lower lumbar spine and adjacent to the IVC and common iliac veins. A similar finding is seen on the prior study. There is preservation of flow voids within the common iliac veins and visualized IVC. Nerves: There is no evidence of impingement upon the sacral neural plexus bilaterally. The sacral neural foramina are diffusely patent. Bones/joints: Edema is identified within the disc and adjacent bone marrow at L3-L4. This can be reactive, degenerative, although discitis/osteomyelitis is within the differential. There is no progression compared to the previous MRI lumbar spine. Fluid signal intensity is also noted involving the L4-L5 disc, which is likely reactive or due to discitis. This is also stable. Grade 1 anterolisthesis of L4 on L5. Severe spinal canal stenosis is identified at L3-L4 and L4-L5. Bilateral neural foraminal narrowing is visualized from L3-L4 through L5-S1. Evaluation of the lumbar spine is limited. Facet arthropathy is visualized within the lower lumbar spine. There is increased concavity of the inferior L3 endplate. The L3 vertebral body extends out of the field of view of this study. Nonspecific heterogeneous signal intensity of the bone marrow of the sacrum and visualized pelvis this can be due to marrow hyperplasia, although additional pathology cannot be excluded. Soft tissues: Mild soft tissue swelling posteriorly. IMPRESSION: 1. Edema is identified within the disc and adjacent bone marrow at L3-L4. This can be reactive, degenerative, although discitis/osteomyelitis is within the differential. There is no progression compared to the previous MRI lumbar spine. Clinical correlation is recommended. 2. Fluid signal intensity is also noted involving the L4-L5 disc, which is likely reactive or due to discitis. This is also stable. 3. Grade 1 anterolisthesis of L4 on L5. 4. Severe spinal canal stenosis is identified at L3-L4 and L4-L5. Bilateral neural foraminal narrowing is visualized from L3-L4 through L5-S1. 5. Small amount of free fluid within the pelvis. 7. There is no evidence of impingement upon the sacral neural plexus bilaterally. The sacral neural foramina are diffusely patent. 8. Nonspecific heterogeneous signal intensity of the bone marrow of the sacrum and visualized pelvis this can be due to marrow hyperplasia, although additional pathology cannot be excluded. 9. Within the bladder posteriorly, there is a 1.0 x 0.3 cm focus of hypointensity, suggestive of a bladder stone. 10. Heterogeneous signal intensity of the prostate, which is incompletely visualized. Within the left side of the prostate, there is a 1.4 cm ovoid area of increased T1 signal intensity, and hemorrhage cannot be excluded. Clinical correlation and possible dedicated prostate MRI are recommended. 11. Additional findings described above. Electronically signed by: Galen Palafox On 06/11/2021 01:13:35 AM
== END ==
LOC: M PLAIMG 08:55
PROVIDERS: ATTEND Physical Medicine & Rehabilitation
DX: M47.817 Spondylosis without myelopathy or radiculopathy, lumbosacral region (principal); M51.36 Other intervertebral disc degeneration, lumbar region

== ENCOUNTER → 2021-07-08 | Outpatient (CLI) | payer MEDICARE ==
[2021-07-08 14:22] LABS: ALBUMIN 2.7 GM/DL (3.2-5.2); ALT/SGPT 41 U/L (12-78); BILIRUBIN,DIRECT 0.5 MG/DL (0.0-0.2); BILIRUBIN,TOTAL 1.8 MG/DL (0.2-1.0); FOLATE 6.8 NG/ML; FREE T4 0.99 NG/DL (0.76-1.46); TOTAL PROTEIN 7.3 GM/DL (6.4-8.2); VITAMIN B12 LEVEL 1143 PG/ML
[2021-07-12 15:07] LABS: ALBUMIN 3.34 GM/DL (3.29-5.55); ALBUMIN % 45.8 % (55.8-66.1); ALPHA-1-GLOBULIN % 3.2 % (2.9-4.9); ALPHA-1-GLOBULINS 0.23 GM/DL (0.17-0.41); ALPHA-2-GLOBULINS 0.55 GM/DL (0.42-0.99); ALPHA-2-GLOBULINS % 7.6 % (7.1-11.8); BETA-1-GLOBULINS 0.33 GM/DL (0.28-0.60); BETA-1-GLOBULINS % 4.5 % (4.7-7.2); BETA-2-GLOBULINS 0.42 GM/DL (0.19-0.55); BETA-2-GLOBULINS % 5.7 % (3.2-6.5); GAMMA GLOBULIN % 33.2 % (11.1-18.8); GAMMA GLOBULINS 2.42 GM/DL (0.65-1.58)
== END ==
LOC: M PLALAB 09:51
PROVIDERS: ATTEND Physical Medicine & Rehabilitation
DX: M47.817 Spondylosis without myelopathy or radiculopathy, lumbosacral region (principal); Z79.899 Other long term (current) drug therapy

== ENCOUNTER → 2021-07-08 | Outpatient (CLI) | payer MEDICARE ==
[2021-07-08 14:04] LABS: C REACTIVE PROTEIN QUANTITATIV 0.37 MG/DL (0.00-0.30)
[2021-07-08 14:11] LABS: BASO # 0.1 10^3/uL (0.0-0.2); EOS # 0.3 10^3/uL (0.0-0.5); EOS % 7.2 % (0.0-3.0); HEMATOCRIT 39.2 % (42.0-52.0); HEMOGLOBIN 12.8 g/dl (13.5-17.5); LYMPH # 1.3 10^3/uL (1.5-5.0); LYMPH % 28.1 % (24.0-44.0); MEAN CORPUSCULAR HEMOGLOBIN 31.4 pg (27.0-33.0); MEAN CORPUSCULAR HGB CONC 32.7 g/dl (32.0-36.5); MEAN CORPUSCULAR VOLUME 96.1 fl (80.0-96.0); MONO # 0.5 10^3/uL (0.0-0.8); MONO % 10.7 % (2.0-8.0); NEUTROPHILS # 2.4 10^3/uL (1.5-8.5); NEUTROPHILS % 51.6 % (36.0-66.0); RED BLOOD COUNT 4.08 10^6/uL (4.30-6.10); WHITE BLOOD COUNT 4.6 10^3/uL (4.0-10.0)
[2021-07-08 15:40] LABS: PLATELET COUNT, AUTOMATED 80 10^3/uL (150-450)
== END ==
LOC: M PLALAB 09:49
PROVIDERS: ATTEND Internal Medicine Infectious Disease
DX: R93.7 Abnormal findings on diagnostic imaging of other parts of musculoskeletal system (principal); K74.60 Unspecified cirrhosis of liver

== ENCOUNTER → 2021-07-21 | Outpatient (CLI) | payer MEDICARE ==
[~2021-07-21] MED LIST changes: +PROHANCE 279.3MG/ML 15ML VIAL As Ordered ONE; +PROHANCE 279.3MG/ML 5ML VIAL As Ordered ONE
== END ==
LOC: M RAD 15:52
PROVIDERS: ATTEND Physician Assistant Medical
DX: R93.89 Abnormal findings on diagnostic imaging of other specified body structures (principal)
CPT/HCPCS: A9576 ×2

== ENCOUNTER → 2021-07-21 | Outpatient (CLI) | payer MEDICARE ==
[~2021-07-21] MED LIST changes: -PROHANCE 279.3MG/ML 15ML VIAL As Ordered ONE; -PROHANCE 279.3MG/ML 5ML VIAL As Ordered ONE
[2021-07-21 18:44] LABS: HEPATITIS B SURFACE ANTIBODY NEGATIVE (POSITIVE); HEPATITIS B SURFACE ANTIGEN NEGATIVE (NEGATIVE); HEPATITIS C VIRUS ABY INDEX < 0.0 INDEX (<0.8); HIV 1&2 SCREEN CENTAUR NEGATIVE (NEGATIVE)
--- NOTE | 2021-07-22 08:47 | REP ---
INDICATION: ABN FINDINGS ON DX IMAGING OF OTH BODY STRUC. COMPARISON: MRI 06/10/2021. TECHNIQUE: Using a phased array surface coil, small [id number] imaging was acquired using T2 weighted scans in the axial, coronal, and sagittal imaging planes. Small zyhea-tn-vyli diffusion-weighted sequences are acquired. Small acmqq-og-njwv axial T1 weighted scans are acquired dynamically before and after the intravenous administration of 20 mL of ProHance. Imaging is reviewed using the [employer] computer-aided detection system. FINDINGS: The prostate measures 4.9 x 3.8 x 3.5 cm, total volume 35.58 cc. Heterogeneous signal is seen throughout the prostate. There are some nonspecific ill-defined low signal areas in the transitional zone bilaterally. No focal enhancing mass or nodule is seen. There is no abnormal signal within the prostate that was suggest hemorrhage. The seminal vesicles are unremarkable. No prostate contour abnormality is seen. There is no other evidence of pelvic mass or adenopathy. No free fluid is seen. The visualized osseous structures demonstrate normal signal with no focal bone lesion. IMPRESSION: No MR evidence of hemorrhage within the prostate as suggested on the prior MRI of 06/10/2021. No suspicious enhancing nodule is visualized. Correlate with PSA. <Electronically signed by Cory Mari > 07/22/21 0863
[2021-07-23 04:07] LABS: HEPATITIS A IgG TOTAL Positive (Negative); HEPATITIS B CORE ANTIBODY IGG Negative (Negative)
== END ==
LOC: M LAB 15:55
PROVIDERS: ATTEND Internal Medicine Infectious Disease
DX: K74.60 Unspecified cirrhosis of liver (principal)

== ENCOUNTER → 2021-07-23 | Outpatient (CLI) | payer MEDICARE ==
--- NOTE | 2021-07-23 11:55 | REP ---
INDICATION: HEPATIC CIRRHOSIS. COMPARISON: 03/17/2021. TECHNIQUE: Real-time sonographic evaluation of right upper quadrant performed. FINDINGS: The gallbladder demonstrates no evidence of intraluminal sludge or calculi, wall thickening or pericholecystic fluid. There is no intrahepatic or extrahepatic biliary dilatation, common bile duct measures 6 mm in maximum diameter. There is diffuse heterogeneous echotexture of the liver. There is mild hepatomegaly, the length of the liver is 18.6 cm. There is a rounded irregular hypoechoic area in the right lobe of the liver which measures 2.6 x 2.8 x 2.9 cm. Underlying mass cannot be excluded. Visualized pancreas is grossly unremarkable, not well seen due to overlying bowel gas. The right kidney demonstrates no hydronephrosis, with a normal size of 11.4 cm in length. A cyst in the mid right kidney measures 1 cm in diameter.No free fluid is seen. IMPRESSION: Mild hepatomegaly and heterogeneous echotexture of the liver diffusely. Possible right lobe of liver mass. Recommend dedicated MRI of the liver with and without contrast to further evaluate. <Electronically signed by Cory Mari > 07/23/21 0644
== END ==
LOC: M RAD 08:52
PROVIDERS: ATTEND Internal Medicine Infectious Disease
DX: K74.60 Unspecified cirrhosis of liver (principal)

== ENCOUNTER → 2021-07-26 | Outpatient (REF) | payer MEDICARE | LOC: M LAB REF 12:33 | PROVIDERS: ATTEND Physical Medicine & Rehabilitation | DX: M47.817 Spondylosis without myelopathy or radiculopathy, lumbosacral region (principal); Z79.899 Other long term (current) drug therapy ==

== ENCOUNTER → 2021-09-16 | Outpatient (CLI) | payer MEDICARE ==
[2021-09-16 12:18] LABS: ALBUMIN 2.7 GM/DL (3.2-5.2); ALT/SGPT 48 U/L (12-78); BILIRUBIN,DIRECT 0.5 MG/DL (0.0-0.2); BILIRUBIN,TOTAL 1.1 MG/DL (0.2-1.0); BLOOD UREA NITROGEN 12 MG/DL (7-18); CREATININE FOR GFR 0.72 MG/DL (0.70-1.30); GLOMERULAR FILTRATION RATE > 60.0 (>42); TOTAL PROTEIN 7.3 GM/DL (6.4-8.2)
== END ==
LOC: M LAB 10:51
PROVIDERS: ATTEND Internal Medicine Gastroenterology
DX: K70.30 Alcoholic cirrhosis of liver without ascites (principal)

== ENCOUNTER → 2021-09-20 | Outpatient (CLI) | payer MEDICARE ==
[~2021-09-20] MED LIST changes: +B-1100TA2; +FOLI1TAB11; +LORA-674; +PROHANCE 279.3MG/ML 15ML VIAL ONE; +PROHANCE 279.3MG/ML 5ML VIAL ONE
== END ==
LOC: M PLAIMG 09:39
PROVIDERS: ATTEND Internal Medicine Gastroenterology
DX: R93.2 Abnormal findings on diagnostic imaging of liver and biliary tract (principal)
CPT/HCPCS: 74183; A9576

== ENCOUNTER → 2021-11-12 | Outpatient (CLI) | payer MEDICARE ==
[~2021-11-12] MED LIST changes: +ISOVUE-370 76% 100ML VIAL As Ordered ONE; -PROHANCE 279.3MG/ML 15ML VIAL ONE; -PROHANCE 279.3MG/ML 5ML VIAL ONE
== END ==
LOC: M RAD 14:07
DX: R93.5 Abnormal findings on diagnostic imaging of other abdominal regions, including retroperitoneum (principal); R16.2 Hepatomegaly with splenomegaly, not elsewhere classified
CPT/HCPCS: 74177; Q9967

== ENCOUNTER → 2021-11-18 | Outpatient (CLI) | payer MEDICARE ==
[~2021-11-18] MED LIST changes: -ISOVUE-370 76% 100ML VIAL As Ordered ONE
== END ==
LOC: M RAD 07:09
PROVIDERS: ATTEND Physical Medicine & Rehabilitation
DX: M17.12 Unilateral primary osteoarthritis, left knee (principal)

== ENCOUNTER → 2021-12-31 | Outpatient (CLI) | payer MEDICARE ==
[~2021-12-31] MED LIST changes: -B-1100TA2; +B-1100TA2 PO; -FOLI1TAB11; +FOLI1TAB11 PO; -LORA-674; +LORA-674 PO
== END ==
LOC: M LABSMTC 09:47
DX: Z20.822 Contact with and (suspected) exposure to COVID-19 (principal)

== ENCOUNTER → 2022-01-13 | Outpatient (CLI) | payer MEDICARE | LOC: M LABSMTC 10:17 | DX: Z11.52 Encounter for screening for COVID-19 (principal) ==

== ENCOUNTER → 2022-01-24 | Outpatient (CLI) | payer MEDICARE ==
[2022-01-24 15:52] LABS: HEMATOCRIT 38.5 % (42.0-52.0); MEAN CORPUSCULAR HEMOGLOBIN 32.4 pg (27.0-33.0); MEAN CORPUSCULAR HGB CONC 33.8 g/dl (32.0-36.5); RED BLOOD COUNT 4.01 10^6/uL (4.30-6.10)
[2022-01-24 15:54] LABS: PLATELET COUNT, AUTOMATED 88 10^3/uL (150-450)
[2022-01-24 16:28] LABS: ALBUMIN 2.9 GM/DL (3.2-5.2); ALT/SGPT 76 U/L (12-78); BILIRUBIN,TOTAL 1.6 MG/DL (0.2-1.0); BLOOD UREA NITROGEN 15 MG/DL (7-18); CALCIUM LEVEL 9.6 MG/DL (8.8-10.2); CARBON DIOXIDE LEVEL 28 MEQ/L (21-32); CHLORIDE LEVEL 108 MEQ/L (98-107); CREATININE FOR GFR 0.72 MG/DL (0.70-1.30); GLOMERULAR FILTRATION RATE > 60.0 (>42); GLUCOSE, FASTING 230 MG/DL (70-100); SODIUM LEVEL 141 MEQ/L (136-145); TOTAL PROTEIN 6.9 GM/DL (6.4-8.2)
== END ==
LOC: M LAB 14:49
DX: R16.0 Hepatomegaly, not elsewhere classified (principal)

== ENCOUNTER → 2022-04-06 | Outpatient (CLI) | payer MEDICARE ==
[2022-04-06 15:57] LABS: BASO # 0.1 10^3/uL (0.0-0.2); BASO % 1.6 % (0.0-1.0); EOS # 0.3 10^3/uL (0.0-0.5); EOS % 8.6 % (0.0-3.0); LYMPH # 0.8 10^3/uL (1.5-5.0); LYMPH % 19.5 % (24.0-44.0); MEAN CORPUSCULAR HEMOGLOBIN 32.7 pg (27.0-33.0); MEAN CORPUSCULAR HGB CONC 33.3 g/dl (32.0-36.5); MONO # 0.4 10^3/uL (0.0-0.8); MONO % 10.9 % (2.0-8.0); NEUTROPHILS # 2.3 10^3/uL (1.5-8.5); NEUTROPHILS % 59.1 % (36.0-66.0); RED BLOOD COUNT 3.98 10^6/uL (4.30-6.10); WHITE BLOOD COUNT 3.9 10^3/uL (4.0-10.0)
[2022-04-06 15:59] LABS: PLATELET COUNT, AUTOMATED 80 10^3/uL (150-450)
[2022-04-06 16:07] LABS: INR 1.37; PROTHROMBIN TIME 17.3 SECONDS (12.7-14.5)
[2022-04-06 16:08] LABS: PARTIAL THROMBOPLASTIN TIME 44.5 SECONDS (25.9-37.0)
[2022-04-06 16:26] LABS: ALBUMIN 2.9 GM/DL (3.2-5.2); ALT/SGPT 43 U/L (12-78); BILIRUBIN,DIRECT 0.5 MG/DL (0.0-0.2); BILIRUBIN,TOTAL 1.4 MG/DL (0.2-1.0); BLOOD UREA NITROGEN 10 MG/DL (7-18); CREATININE FOR GFR 0.77 MG/DL (0.70-1.30); GLOMERULAR FILTRATION RATE > 60.0 (>42); TOTAL PROTEIN 7.1 GM/DL (6.4-8.2)
== END ==
LOC: M LAB 13:47
PROVIDERS: ATTEND Internal Medicine Gastroenterology
DX: K70.30 Alcoholic cirrhosis of liver without ascites (principal)

== ENCOUNTER 2022-04-22 08:38 | Day surgery (SDC) | payer MEDICARE ==
[~2022-04-22] VITALS: Ht 185.4 cm; Wt 108.9 kg
[~2022-04-22 08:38] MED LIST changes: +NS 1,000 ML IV ONE
[2022-04-22] MEDS ORDERED: propofoL 500 MG/50 ML VIAL As Ordered ONE (09:38)
[2022-04-22] MEDS ORDERED: fentaNYL 100 MCG/2 ML INJECTION As Ordered ONE (09:39)
[2022-04-22] MEDS ORDERED: LIDOCAINE 2% 100MG/5ML SDV (FOR ANES.) As Ordered ONE (09:40)
[2022-04-22 12:00] VITALS: BP 119/55
== END 2022-04-22 12:18 | disposition home or self-care (01) ==
LOC: M OPP 08:38
PROVIDERS: ATTEND Internal Medicine Gastroenterology
DX: D12.6 Benign neoplasm of colon, unspecified (principal); K57.30 Diverticulosis of large intestine without perforation or abscess without bleeding; K64.8 Other hemorrhoids; Z98.890 Other specified postprocedural states; Z86.010 Personal history of colon polyps; K21.00 Gastro-esophageal reflux disease with esophagitis, without bleeding; K29.70 Gastritis, unspecified, without bleeding; Z87.19 Personal history of other diseases of the digestive system; I10 Essential (primary) hypertension; G47.9 Sleep disorder, unspecified; C22.9 Malignant neoplasm of liver, not specified as primary or secondary; Z79.899 Other long term (current) drug therapy
CPT/HCPCS: 43235; 45385; 88305; J3010

== ENCOUNTER → 2022-04-28 | Outpatient (CLI) | payer MEDICARE ==
[~2022-04-28] MED LIST changes: -NS 1,000 ML IV ONE
[2022-04-28 11:43] LABS: HEMOGLOBIN 12.5 g/dl (13.5-17.5); MEAN CORPUSCULAR HEMOGLOBIN 33.1 pg (27.0-33.0); MEAN CORPUSCULAR HGB CONC 34.7 g/dl (32.0-36.5); MEAN CORPUSCULAR VOLUME 95.2 fl (80.0-96.0); PLATELET COUNT, AUTOMATED 82 10^3/uL (150-450); RED BLOOD COUNT 3.78 10^6/uL (4.30-6.10); WHITE BLOOD COUNT 3.9 10^3/uL (4.0-10.0)
[2022-04-28 12:25] LABS: BLOOD UREA NITROGEN 7 MG/DL (7-18); CREATININE FOR GFR 0.66 MG/DL (0.70-1.30); GLUCOSE, FASTING 112 MG/DL (70-100)
[2022-04-28 12:26] LABS: ALBUMIN 2.9 GM/DL (3.2-5.2); ALT/SGPT 39 U/L (12-78); BILIRUBIN,TOTAL 1.6 MG/DL (0.2-1.0); CALCIUM LEVEL 8.7 MG/DL (8.8-10.2); CARBON DIOXIDE LEVEL 25 MEQ/L (21-32); CHLORIDE LEVEL 113 MEQ/L (98-107); GLOMERULAR FILTRATION RATE > 60.0 (>42); POTASSIUM SERUM 3.2 MEQ/L (3.5-5.1); SODIUM LEVEL 144 MEQ/L (136-145); TOTAL PROTEIN 7.1 GM/DL (6.4-8.2)
== END ==
LOC: M LAB 10:55
PROVIDERS: ATTEND Radiology Vascular & Interventional Radiology
DX: C22.0 Liver cell carcinoma (principal)

== ENCOUNTER → 2022-06-13 | Outpatient (CLI) | payer MEDICARE | LOC: M WUC 14:05 | PROVIDERS: ATTEND Physician Assistant Medical | DX: M54.59 Other low back pain (principal) ==

== ENCOUNTER → 2022-07-27 | Outpatient (REF) | payer MEDICARE ==
[2022-07-28 14:17] LABS: VITAMIN B12 LEVEL 1563 PG/ML (247-911)
== END ==
LOC: M LAB REF 12:26
PROVIDERS: ATTEND Physician Assistant Medical
DX: F10.21 Alcohol dependence, in remission (principal)

== ENCOUNTER → 2022-08-16 | Outpatient (CLI) | payer MEDICARE ==
[~2022-08-16] MED LIST changes: +PROHANCE 279.3MG/ML 15ML VIAL ONE; +PROHANCE 279.3MG/ML 5ML VIAL ONE
== END ==
LOC: M PLAIMG 07:34
PROVIDERS: ATTEND Physician Assistant Medical
DX: G31.84 Mild cognitive impairment of uncertain or unknown etiology (principal); F98.5 Adult onset fluency disorder
CPT/HCPCS: 70553; A9576

== ENCOUNTER → 2022-08-30 | Outpatient (REF) | payer MEDICARE ==
[~2022-08-30] MED LIST changes: -PROHANCE 279.3MG/ML 15ML VIAL ONE; -PROHANCE 279.3MG/ML 5ML VIAL ONE
== END ==
LOC: M LAB REF 16:26
PROVIDERS: ATTEND Physician Assistant Medical
DX: R10.9 Unspecified abdominal pain (principal); R19.7 Diarrhea, unspecified

== ENCOUNTER 2022-09-01 15:00 | Inpatient (IN) | payer MEDICARE ==
[~2022-09-01] VITALS: Ht 185.4 cm; Wt 103.2 kg
[2022-09-01 16:12] LABS: BASO # 0.1 10^3/uL (0.0-0.2); BASO % 1.8 % (0.0-1.0); EOS # 0.3 10^3/uL (0.0-0.5); EOS % 6.5 % (0.0-3.0); HEMATOCRIT 35.2 % (42.0-52.0); HEMOGLOBIN 11.3 g/dl (13.5-17.5); LYMPH % 21.6 % (24.0-44.0); MEAN CORPUSCULAR HEMOGLOBIN 32.8 pg (27.0-33.0); MEAN CORPUSCULAR HGB CONC 32.1 g/dl (32.0-36.5); MONO # 0.5 10^3/uL (0.0-0.8); MONO % 10.9 % (2.0-8.0); NEUTROPHILS # 2.7 10^3/uL (1.5-8.5); PLATELET COUNT, AUTOMATED 111 10^3/uL (150-450); RED BLOOD COUNT 3.45 10^6/uL (4.30-6.10); WHITE BLOOD COUNT 4.5 10^3/uL (4.0-10.0)
[2022-09-01 16:14] LABS: INR 1.54; PROTHROMBIN TIME 18.8 SECONDS (12.5-14.5)
[2022-09-01 16:15] LABS: PARTIAL THROMBOPLASTIN TIME 39.7 SECONDS (24.8-34.2)
[2022-09-01 16:19] LABS: LIPASE 33 U/L (12-53)
[2022-09-01 16:22] LABS: ALBUMIN 2.4 G/DL (3.2-5.2); ALKALINE PHOSPHATASE 115 U/L (46-116); ALT/SGPT 25 U/L (7.0-40); AST/SGOT 45 U/L (<34); BILIRUBIN,DIRECT 1.4 MG/DL (<0.4); BILIRUBIN,TOTAL 2.9 MG/DL (0.3-1.2); BLOOD UREA NITROGEN 14 MG/DL (9-23); CARBON DIOXIDE LEVEL 27 MMOL/L (20-31); CHLORIDE LEVEL 104 MMOL/L (98-107); GLOMERULAR FILTRATION RATE > 60.0 (>42); GLUCOSE, FASTING 118 MG/DL (74-106); POTASSIUM SERUM 3.2 MMOL/L (3.5-5.1); SODIUM LEVEL 139 MMOL/L (136-145); TOTAL PROTEIN 7.2 G/DL (5.7-8.2)
[2022-09-01] MEDS ORDERED: ISOVUE-370 76% 100ML VIAL As Ordered ONE (16:42)
[2022-09-01 16:45] LABS: RSV AMPLIFICATION NEGATIVE (NEGATIVE)
[2022-09-01] MEDS ORDERED: NS 500 ML IV ONE (16:55)
[2022-09-01] MEDS: NS 1,000 ML IV SCH (17:10)
[2022-09-01] MEDS ORDERED: GABA-1171 PO (20:27)
[2022-09-01] MEDS ORDERED: HOME MED LIST COMPLETE! XX SCH (20:30)
[2022-09-01] MEDS ORDERED: MOM 30ML SUSPENSION UDC PO PRN (21:10)
[2022-09-01] MEDS ORDERED: FUROSEMIDE 40MG/4ML VIAL (J1940) IV ONE (21:15)
[2022-09-01] MEDS ORDERED: POTASSIUM CHLORIDE 10MEQ SR TABLET PO ONE (22:00)
[2022-09-02] VITALS (8 sets, daily range): BP systolic 141–163; BP diastolic 62–73
[2022-09-02] MEDS: NS 1,000 ML IV SCH (05:55)
[2022-09-02 06:57] LABS: HEMATOCRIT 33.2 % (42.0-52.0); MEAN CORPUSCULAR HEMOGLOBIN 33.5 pg (27.0-33.0); MEAN CORPUSCULAR HGB CONC 33.1 g/dl (32.0-36.5); MEAN CORPUSCULAR VOLUME 101.2 fl (80.0-96.0); PLATELET COUNT, AUTOMATED 113 10^3/uL (150-450); RED BLOOD COUNT 3.28 10^6/uL (4.30-6.10); WHITE BLOOD COUNT 6.3 10^3/uL (4.0-10.0)
[2022-09-02 07:30] LABS: ALBUMIN 2.3 G/DL (3.2-5.2); ALKALINE PHOSPHATASE 99 U/L (46-116); ALT/SGPT 24 U/L (7.0-40); AST/SGOT 42 U/L (<34); BILIRUBIN,TOTAL 3.5 MG/DL (0.3-1.2); BLOOD UREA NITROGEN 13 MG/DL (9-23); CALCIUM LEVEL 7.8 MG/DL (8.3-10.6); CARBON DIOXIDE LEVEL 25 MMOL/L (20-31); CHLORIDE LEVEL 106 MMOL/L (98-107); CREATININE FOR GFR 0.61 MG/DL (0.70-1.30); GLOMERULAR FILTRATION RATE > 60.0 (>42); GLUCOSE, FASTING 106 MG/DL (74-106); POTASSIUM SERUM 3.5 MMOL/L (3.5-5.1); SODIUM LEVEL 141 MMOL/L (136-145); TOTAL PROTEIN 6.8 G/DL (5.7-8.2)
[2022-09-02] MEDS ORDERED: NS 1,000 ML IV SCH (08:50)
[2022-09-02] MEDS ORDERED: hydroCHLOROthiazide 12.5 MG CAPSULE PO SCH (09:00)
[2022-09-02] MEDS ORDERED: LIDOCAINE 1% MDV 20ML VIAL As Ordered ONE (09:13)
[2022-09-02 10:40] LABS: SOURCE, BODY FLUID ASCITES
[2022-09-02 10:41] LABS: ASCITES FL COLOR YELLOW (COLORLESS)
[2022-09-02 10:45] LABS: APPEARANCE, BODY FLUID CLOUDY (CLEAR)
[2022-09-02] MEDS: FUROSEMIDE 20 MG TAB PO SCH (11:06)
[2022-09-02] MEDS: LACTULOSE 20 GM/30 ML SYRUP UD PO SCH ×2 (11:07→21:00)
[2022-09-02] MEDS: FOLIC ACID 1MG TAB PO SCH (11:07)
[2022-09-02] MEDS: SPIRONOLACTONE 50 MG TAB PO SCH (11:07)
[2022-09-02] MEDS: GABAPENTIN 100 MG CAP PO SCH ×3 (11:07→21:09)
[2022-09-02 11:38] LABS: SOURCE, BODY FLUID ALBUMIN ASCITES
[2022-09-02 11:43] LABS: SOURCE, BODY FLUID GLUCOSE ASCITES
[2022-09-02 11:45] LABS: SOURCE, BODY FLUID TOT PROTEIN ASCITES; TOTAL PROTEIN, BODY FLUID < 2.0 G/DL (NOT ESTABLISHED)
[2022-09-02 11:50] LABS: SPEC. GRAVITY BODY FLUIDS 1.016 (NOT ESTABLISHED)
[2022-09-02] MEDS ORDERED: CALCIUM CARBONATE 500 MG CHEW U/D PO PRN (21:00)
[2022-09-02] MEDS: HEPARIN SOD (PORCINE) 5000UNITS/ML 1ML VIAL/SYRINGE SC SCH (21:09)
[2022-09-03 00:42] VITALS: BP 132/60
[2022-09-03 06:00] VITALS: BP 128/56
[2022-09-03 06:16] LABS: BASO # 0.1 10^3/uL (0.0-0.2); BASO % 1.9 % (0.0-1.0); EOS # 0.2 10^3/uL (0.0-0.5); EOS % 7.4 % (0.0-3.0); HEMATOCRIT 28.5 % (42.0-52.0); HEMOGLOBIN 9.3 g/dl (13.5-17.5); LYMPH # 0.8 10^3/uL (1.5-5.0); LYMPH % 25.9 % (24.0-44.0); MEAN CORPUSCULAR HEMOGLOBIN 33.1 pg (27.0-33.0); MEAN CORPUSCULAR HGB CONC 32.6 g/dl (32.0-36.5); MEAN CORPUSCULAR VOLUME 101.4 fl (80.0-96.0); MONO # 0.4 10^3/uL (0.0-0.8); MONO % 12.6 % (2.0-8.0); NEUTROPHILS # 1.6 10^3/uL (1.5-8.5); NEUTROPHILS % 51.9 % (36.0-66.0); RED BLOOD COUNT 2.81 10^6/uL (4.30-6.10); WHITE BLOOD COUNT 3.1 10^3/uL (4.0-10.0)
[2022-09-03 07:06] LABS: ALBUMIN 2.4 G/DL (3.2-5.2); ALKALINE PHOSPHATASE 74 U/L (46-116); ALT/SGPT 18 U/L (7.0-40); AST/SGOT 36 U/L (<34); BILIRUBIN,TOTAL 2.4 MG/DL (0.3-1.2); BLOOD UREA NITROGEN 13 MG/DL (9-23); CALCIUM LEVEL 8.3 MG/DL (8.3-10.6); CARBON DIOXIDE LEVEL 27 MMOL/L (20-31); CHLORIDE LEVEL 107 MMOL/L (98-107); CREATININE FOR GFR 0.67 MG/DL (0.70-1.30); GLOMERULAR FILTRATION RATE > 60.0 (>42); GLUCOSE, FASTING 92 MG/DL (74-106); SODIUM LEVEL 140 MMOL/L (136-145); TOTAL PROTEIN 5.7 G/DL (5.7-8.2)
[2022-09-03 07:42] LABS: PLATELET COUNT, AUTOMATED 79 10^3/uL (150-450)
[2022-09-03] MEDS ORDERED: POTASSIUM CHLORIDE 10MEQ SR TABLET PO SCH (09:00)
[2022-09-03] MEDS: HEPARIN SOD (PORCINE) 5000UNITS/ML 1ML VIAL/SYRINGE SC SCH (09:00)
[2022-09-03] MEDS: LACTULOSE 20 GM/30 ML SYRUP UD PO SCH (09:42)
[2022-09-03] MEDS: FUROSEMIDE 20 MG TAB PO SCH (09:43)
[2022-09-03] MEDS: SPIRONOLACTONE 50 MG TAB PO SCH (09:43)
[2022-09-03] MEDS: FOLIC ACID 1MG TAB PO SCH (09:43)
[2022-09-03] MEDS: GABAPENTIN 100 MG CAP PO SCH (09:43)
== END 2022-09-03 12:45 | disposition home or self-care (01) | DRG 436 ==
LOC: M ED 15:00 → M ED INP 21:09 → ENRESERV 09-02 14:36 → M MSPAV 09-02 15:55
PROVIDERS: ADMIT Family Medicine; ATTEND Family Medicine
PROC: 0W9G3ZZ Drainage of Peritoneal Cavity, Percutaneous Approach (ICD-10-PCS; principal; 2022-09-02 11:00)
DX: C22.0 Liver cell carcinoma (principal); R18.0 Malignant ascites; K76.6 Portal hypertension; M17.9 Osteoarthritis of knee, unspecified; E87.6 Hypokalemia; K74.60 Unspecified cirrhosis of liver; R16.1 Splenomegaly, not elsewhere classified; D69.6 Thrombocytopenia, unspecified; D53.9 Nutritional anemia, unspecified; I86.8 Varicose veins of other specified sites; I10 Essential (primary) hypertension; Z66 Do not resuscitate; Z79.899 Other long term (current) drug therapy

== ENCOUNTER → 2022-09-07 | Outpatient (REF) | payer MEDICARE ==
[~2022-09-07] MED LIST changes: +GABA-1171 PO
== END ==
LOC: M LAB REF 16:29
PROVIDERS: ATTEND Physician Assistant Medical
DX: C22.0 Liver cell carcinoma (principal)

== ENCOUNTER → 2022-09-08 | Outpatient (CLI) | payer MEDICARE ==
[~2022-09-08] MED LIST changes: +PROHANCE 279.3MG/ML 15ML VIAL As Ordered ONE; +PROHANCE 279.3MG/ML 5ML VIAL As Ordered ONE
== END ==
LOC: M RAD 15:22
PROVIDERS: ATTEND Physician Assistant Medical
DX: C22.0 Liver cell carcinoma (principal)
CPT/HCPCS: 74183; A9576

== ENCOUNTER 2022-09-10 11:25 | Emergency (ER) | payer MEDICARE ==
[~2022-09-10] VITALS: Ht 185.4 cm; Wt 109.1 kg
[~2022-09-10 11:25] MED LIST changes: -PROHANCE 279.3MG/ML 15ML VIAL As Ordered ONE; -PROHANCE 279.3MG/ML 5ML VIAL As Ordered ONE
[2022-09-10 13:03] LABS: BASO # 0.1 10^3/uL (0.0-0.2); BASO % 1.2 % (0.0-1.0); EOS # 0.2 10^3/uL (0.0-0.5); EOS % 3.4 % (0.0-3.0); HEMATOCRIT 33.8 % (42.0-52.0); HEMOGLOBIN 11.5 g/dl (13.5-17.5); LYMPH # 0.9 10^3/uL (1.5-5.0); MEAN CORPUSCULAR HEMOGLOBIN 33.9 pg (27.0-33.0); MEAN CORPUSCULAR VOLUME 99.7 fl (80.0-96.0); MONO # 0.7 10^3/uL (0.0-0.8); MONO % 12.2 % (2.0-8.0); NEUTROPHILS # 3.9 10^3/uL (1.5-8.5); NEUTROPHILS % 66.7 % (36.0-66.0); PLATELET COUNT, AUTOMATED 99 10^3/uL (150-450); RED BLOOD COUNT 3.39 10^6/uL (4.30-6.10); WHITE BLOOD COUNT 5.8 10^3/uL (4.0-10.0)
[2022-09-10 13:23] LABS: LIPASE 35 U/L (12-53)
[2022-09-10 13:25] LABS: ALBUMIN 2.4 G/DL (3.2-5.2); ALKALINE PHOSPHATASE 147 U/L (46-116); ALT/SGPT 28 U/L (7.0-40); AST/SGOT 47 U/L (<34); BILIRUBIN,DIRECT 1.4 MG/DL (<0.4); BILIRUBIN,TOTAL 2.6 MG/DL (0.3-1.2); BLOOD UREA NITROGEN 12 MG/DL (9-23); CALCIUM LEVEL 7.8 MG/DL (8.3-10.6); CARBON DIOXIDE LEVEL 26 MMOL/L (20-31); CHLORIDE LEVEL 101 MMOL/L (98-107); CREATININE FOR GFR 0.69 MG/DL (0.70-1.30); GLOMERULAR FILTRATION RATE > 60.0 (>42); GLUCOSE, FASTING 106 MG/DL (74-106); POTASSIUM SERUM 3.6 MMOL/L (3.5-5.1); SODIUM LEVEL 135 MMOL/L (136-145)
[2022-09-10] MEDS ORDERED: ISOVUE-370 76% 100ML VIAL As Ordered ONE (13:52)
[2022-09-10 15:52] VITALS: BP 117/57
== END 2022-09-10 15:54 | disposition home or self-care (01) ==
LOC: M ED 11:25
DX: R18.8 Other ascites (principal); R11.2 Nausea with vomiting, unspecified; C22.0 Liver cell carcinoma; I10 Essential (primary) hypertension; I85.00 Esophageal varices without bleeding; M19.90 Unspecified osteoarthritis, unspecified site; Z79.899 Other long term (current) drug therapy
CPT/HCPCS: 74177; 80048; 80076; 83690; 85025; 85049; 85055; 93041; 99284; Q9967

== ENCOUNTER → 2022-09-12 | Outpatient (REF) | payer MEDICARE | LOC: M LAB REF 16:14 | PROVIDERS: ATTEND Physician Assistant Medical | DX: K70.30 Alcoholic cirrhosis of liver without ascites (principal) ==

== ENCOUNTER → 2022-09-22 | Outpatient (CLI) | payer MEDICARE ==
[2022-09-22 12:54] VITALS: BP 131/71
== END ==
LOC: M IRPRO 11:51
PROVIDERS: ATTEND Physician Assistant Medical
DX: K74.60 Unspecified cirrhosis of liver (principal)

== ENCOUNTER → 2022-10-05 | Outpatient (REF) | payer MEDICARE | LOC: M LAB REF 12:10 | PROVIDERS: ATTEND Physician Assistant Medical | DX: K70.30 Alcoholic cirrhosis of liver without ascites (principal) ==

== ENCOUNTER → 2022-10-12 | Outpatient (CLI) | payer MEDICARE ==
[~2022-10-12] MED LIST changes: +LIDOCAINE 1% MDV 20ML VIAL As Ordered ONE
[2022-10-12 14:35] VITALS: BP 130/66
== END ==
LOC: M IRPRO 13:20
PROVIDERS: ATTEND Physician Assistant Medical
DX: K70.31 Alcoholic cirrhosis of liver with ascites (principal)

== ENCOUNTER → 2022-11-01 | Outpatient (CLI) | payer MEDICARE ==
[~2022-11-01] MED LIST changes: +LACT20EL PO; -LIDOCAINE 1% MDV 20ML VIAL As Ordered ONE
[2022-11-01 14:28] VITALS: BP 126/74
== END ==
LOC: M IRPRO 13:28
PROVIDERS: ATTEND Physician Assistant Medical
DX: K70.31 Alcoholic cirrhosis of liver with ascites (principal); C22.0 Liver cell carcinoma